=== PATIENT | female | born 1950 | race African-American/Black ===

== ENCOUNTER 2017-05-18 08:21 | Emergency (ER) | payer BC ==
[2017-05-18 08:31] VITALS: BMI 32.9
--- NOTE | 2017-05-18 08:39 | PDOC ---
*Physical Exam - Vital Signs Last Vital Signs Temp Pulse Resp BP Pulse Ox 98.4 F 77 18 181/108 97 05/18/17 08:27 05/18/17 08:27 05/18/17 08:27 05/18/17 08:27 05/18/17 08:27
--- NOTE | 2017-05-18 09:04 | PDOC ---
History of Present Illness - General Chief Complaint: Pain Stated Complaint: ABD PAIN Time Seen by Provider: 05/18/17 08:39 - History of Present Illness Initial Comments: 05/18/17 08:50 Ms. Traylor is a 66 year old female with a significant past medical history of surgery for an ectopic who presents to the emergency department with 24 hours of nausea and vomiting with 5/10 abdominal pain. She reports pain increases with moving and that she has been vomiting clear liquid almost hourly. The patient denies chest pain, shortness of breath, headache and dizziness. Denies fever, chills, diarrhea and constipation. Denies dysuria, frequency, urgency and hematuria. Allergies: n/a Past surgical history: ectopic removal Social history: PCP: 05/18/17 09:35 Past History - Past Medical History Allergies/Adverse Reactions: Allergies Allergy/AdvReac Type Severity Reaction Status Date / Time No Known Allergies Allergy Verified 05/18/17 08:27 Home Medications: Ambulatory Orders Metformin HCl [Metformin HCl ER] 500 mg PO DAILY 05/18/17 Ondansetron HCl [Zofran] 4 mg PO PRN #20 tablet 05/18/17 Oxycodone HCl/Acetaminophen [Percocet 5-325 mg Tablet] 1 tab PO Q4H #20 tablet MDD 6 05/18/17 Diabetes: Yes (niddm) - Psycho/Social/Smoking Cessation Hx Anxiety: No Suicidal Ideation: No Smoking History: Never smoked Have you smoked in the past 12 months: No Information on smoking cessation initiated: No Hx Alcohol Use: No Drug/Substance Use Hx: No Substance Use Type: None Review of Systems - Review of Systems Comments:: 05/18/17 08:50 GENERAL/CONSTITUTIONAL: No fever or chills. No weakness. HEAD, EYES, EARS, NOSE AND THROAT: No change in vision. No ear pain or discharge. No sore throat. CARDIOVASCULAR: No chest pain or shortness of breath RESPIRATORY: No cough, wheezing, or hemoptysis. GASTROINTESTINAL: +nausea and vomiting, several instances over the past 24 hours. Has not had a bowl movement since Friday. GENITOURINARY: No dysuria, frequency, or change in urination. MUSCULOSKELETAL: No joint or muscle swelling or pain. No neck or back pain. SKIN: No rash NEUROLOGIC: No headache, vertigo, loss of consciousness, or change in strength/ sensation. ENDOCRINE: No increased thirst. No abnormal weight change HEMATOLOGIC/LYMPHATIC: No anemia, easy bleeding, or history of blood clots. ALLERGIC/IMMUNOLOGIC: No hives or skin allergy. 05/18/17 09:38 *Physical Exam - Vital Signs Last Vital Signs Temp Pulse Resp BP Pulse Ox 98.4 F 77 18 181/108 97 05/18/17 08:27 05/18/17 08:27 05/18/17 08:27 05/18/17 08:27 05/18/17 08:27 05/18/17 14:57 - Physical Exam Comments: 05/18/17 08:50 GENERAL: Awake, alert, and fully oriented, in no acute distress HEAD: No signs of trauma, normocephalic, atraumatic EYES: PERRLA, EOMI, sclera anicteric, conjunctiva clear ENT: Auricles normal inspection, hearing grossly normal, nares patent, oropharynx clear without exudates. Moist mucosa NECK: Normal ROM, supple, no lymphadenopathy, JVD, or masses LUNGS: No distress, speaks full sentences, clear to auscultation bilaterally HEART: Regular rate and rhythm, normal S1 and S2, no murmurs, rubs or gallops, peripheral pulses normal and equal bilaterally. ABDOMEN: +Diffusely tender midline and right +hypoactive bowel sounds +guarding , +rebound. Soft, no masses EXTREMITIES: Normal inspection, Normal range of motion, no edema. No clubbing or cyanosis. NEUROLOGICAL: Cranial nerves II through XII grossly intact. Normal speech, normal gait, no focal sensorimotor deficits SKIN: Warm, Dry, normal turgor, no rashes or lesions noted. 05/18/17 09:39 05/18/17 14:57 Heart Score/ECG Review - ECG Impressions Comment:: 05/18/17 10:46 Normal sinus rhythm, normal access, normal intervals, normal rate, normal EKG. ED Treatment Course - LABORATORY CBC & Chemistry Diagram: 05/18/17 09:24 05/18/17 09:24 Medical Decision Making - Medical Decision Making 05/18/17 09:41 Ms. Traylor presented in acute pain. Could be seen to be moving around to try to get comfortable with limited success. Concern for Gall stones vs. Acute abdomen vs. SBO vs. appendicitis, formal US ordered to R/O. Formal US showed brannon and nephro lithiasis. Ordered CT to confirm. CT confirmed, referred to surgery and urology for f/u. D/C to home care on percocet / zofran. 05/18/17 14:56 *DC/Admit/Observation/Transfer Diagnosis at time of Disposition: Abdominal pain - Discharge Dispostion Disposition: HOME - Prescriptions Prescriptions: Oxycodone HCl/Acetaminophen [Percocet 5-325 mg Tablet] 1 tab PO Q4H #20 tablet MDD 6 Ondansetron HCl [Zofran] 4 mg PO PRN #20 tablet - Referrals Referrals: Lukas Salvador MD [Primary Care Provider] - Sandoval Obrien MD., MD [Staff Physician] - Boogie Chiu MD [Staff Physician] - - Patient Instructions Printed Discharge Instructions: Kidney Stones -- Adult, DI for Gallstones Additional Instructions: We are very sorry that you were not feeling well today. Please follow up with Urology and Surgery groups as listed above for gall bladder and kidney stones. Thank you for coming in today and we hope that you feel better soon. - Attestations Physician Attestion: 05/18/17 09:40 I, Dr. Ammon Redmond, attest that this document has been prepared under my direction and personally reviewed by me in its entirety. I further attest, that it accurately reflects all work, treatment, procedures and medical decision -making performed by me.
[2017-05-18] MEDS ORDERED: ONDANSETRON 4 MG TABLET PO ONE (09:06)
--- NOTE | 2017-05-18 09:09 | PDOC ---
Attending Attestation - Resident Resident Name: Ammon Redmond - ED Attending Attestation I have performed the following: I have examined & evaluated the patient, The case was reviewed & discussed with the resident, I agree w/resident's findings & plan, Exceptions are as noted <Sukhwinder Bob - Last Filed: 05/18/17 09:07> - HPI HPI: The patient is a 66 yo F with a past medical history of DM who presents with 24 hours of nausea, vomiting and R sided abdominal pain. Patient notes shes vomited 5 or 6 times. She rates her abdominal pain a 6/10. Patient also notes associated dizziness when she stands up. Patient states her last meal before she was sick was pasta with meat sauce. The patient states her last BM was 2 days ago. She denies a family Hx of gallstones. Allergies: NKDA Surgical Hx: ectopic - Physicial Exam PE: GENERAL: Awake, alert, and fully oriented, in mild distress HEAD: No signs of trauma EYES: PERRLA, EOMI, sclera anicteric, conjunctiva clear ENT: Auricles normal inspection, hearing grossly normal, nares patent, oropharynx clear without exudates. Moist mucosa NECK: Normal ROM, supple, no lymphadenopathy, JVD, or masses LUNGS: Breath sounds equal, clear to auscultation bilaterally. No wheezes, and no crackles HEART: Regular rate and rhythm, normal S1 and S2, no murmurs, rubs or gallops ABDOMEN: Obese. + Levine's sign. Soft, R sided tenderness to palpation, diminished bowel sounds. No guarding. no rebound. No masses. Nonreducible umbilical hernia that is tender to palpation. EXTREMITIES: Normal range of motion, no edema. No clubbing or cyanosis. No cords, erythema, or tenderness NEUROLOGICAL: Cranial nerves II through XII grossly intact. Normal speech, normal gait SKIN: Warm, Dry, normal turgor, no rashes or lesions noted. - Medical Decision Making The patient is a 66 yo F with a PMHx of DM who presents with nausea, vomiting and abdominal pain for 24 hours. 1.) Nausea, vomiting and abdominal pain NPO Zofran Morphine for pain control US r/o gallstones IVF Labs Lactic Acid r/o sepsis CT and US revealed that she had kidney stones and a gallstone. She will be treated as outpatient with surgical and neurological consultation. Pain and nausea will be treated with percocet and zofran. Documentation prepared by Anastasiya Bonds, acting as durable medical equipment technician for Sukhwinder Bob MD/. <Anastasiya Bonds - Last Filed: 05/18/17 17:41>
[2017-05-18] MEDS ORDERED: morphine CARPU-JECT 4 MG/1 ML DISP.SYRIN IVPUSH ONE ×2 (09:26→14:28)
[2017-05-18] MEDS ORDERED: ONDANSETRON 4 MG/2 ML VIAL ONE (09:28)
[2017-05-18] MEDS ORDERED: ONDANSETRON 4 MG/2 ML VIAL IVPUSH ONE (09:31)
[2017-05-18 09:37] LABS: BASOPHIL 0.8 % (0-2.0); MCHC 33.4 g/dl (32.0-36.0); MEAN CELL VOLUME 95.8 fl (80-96); MEAN PLT VOLUME 9.8 fl (7.5-11.1); NEUTROPHILS 80.9 % (42.8-82.8); PLATELET COUNT 174 K/MM3 (134-434); WHITE BLOOD COUNT 10.3 K/mm3 (4.0-10.0)
[2017-05-18] MEDS ORDERED: morphine CARPU-JECT 4 MG/1 ML DISP.SYRIN ONE ×2 (09:38→15:06)
[2017-05-18 09:40] LABS: URINE APPEARANCE CLEAR; URINE BILIRUBIN NEGATIVE (NEGATIVE); URINE COLOR YELLOW; URINE GLUCOSE (UA) 1+ (NEGATIVE); URINE KETONE TRACE (NEGATIVE); URINE LEUK ESTERASE NEGATIVE (NEGATIVE); URINE NITRITE NEGATIVE (NEGATIVE); URINE UROBILINOGEN NEGATIVE E.U./dl (0.2-1.0)
[2017-05-18 09:54] LABS: URINE BLOOD 2+ (NEGATIVE); URINE PROTEIN 1+ (NEGATIVE)
[2017-05-18 09:56] LABS: URINE BACTERIA RARE /hpf (NONE SEEN); URINE MUCUS FEW; URINE RBC 28 /hpf (0-3); URINE WBC 7 /hpf (3-5)
[2017-05-18] MEDS ORDERED: SODIUM CHLORIDE 0.9% 1000 ML INFUS.BAG IV ONE (10:01)
[2017-05-18 10:08] LABS: ALBUMIN 3.4 g/dl (3.4-5.0); ANION GAP 10 (8-16); BILIRUBIN,TOTAL 0.7 mg/dL (0.2-1.0); CALCIUM 9.4 mg/dL (8.5-10.1); CO2 28 mmol/L (21-32); CREATININE 1.4 mg/dL (0.55-1.02); GLUCOSE,RANDOM 185 mg/dL (74-106); SGOT/AST 42 U/L (15-37); SGPT/ALT 68 U/L (12-78); TOT PROT 7.8 g/dl (6.4-8.2)
[2017-05-18 10:09] LABS: ALK PHOS 77 U/L (45-117)
[2017-05-18] MEDS ORDERED: SODIUM CHLORIDE 1,000 ML IV STA (11:03)
[2017-05-18] MEDS ORDERED: CEFTRIAXONE 1 GM in DEXTROSE 5%-WATER - 50 ML IVPB ONE (11:16)
[2017-05-18] MEDS ORDERED: CEFTRIAXONE 50 ML ONE (11:47)
[2017-05-18 17:54] VITALS: BP 153/92; PULSE 83; TEMP 99
--- NOTE | 2017-05-19 10:41 | EKG ---
Test Reason : Blood Pressure : / mmHG Vent. Rate : 073 BPM Atrial Rate : 073 BPM P-R Int : 138 ms QRS Dur : 068 ms QT Int : 370 ms P-R-T Axes : 049 006 025 degrees QTc Int : 407 ms NORMAL SINUS RHYTHM MINIMAL VOLTAGE CRITERIA FOR LVH, MAY BE NORMAL VARIANT BORDERLINE ECG NO PREVIOUS ECGS AVAILABLE Confirmed by ANTONI HOU MD ([id number]) on 05/19/2017 10:41:40 AM Referred By: Confirmed By:ANTONI HOU MD
== END 2017-05-18 17:59 | disposition home or self-care (01) ==
LOC: JER 08:21
PROC: 3E0337Z Introduction of Electrolytic and Water Balance Substance into Peripheral Vein, Percutaneous Approach (ICD-10-PCS; principal; 2017-05-18)
PROC: 3E03329 Introduction of Other Anti-infective into Peripheral Vein, Percutaneous Approach (ICD-10-PCS; 2017-05-18)
PROC: 3E033NZ Introduction of Analgesics, Hypnotics, Sedatives into Peripheral Vein, Percutaneous Approach (ICD-10-PCS; 2017-05-18)
PROC: 3E033GC Introduction of Other Therapeutic Substance into Peripheral Vein, Percutaneous Approach (ICD-10-PCS; 2017-05-18)
DX: K80.20 Calculus of gallbladder without cholecystitis without obstruction (principal); N20.0 Calculus of kidney
CPT/HCPCS: 36415; 74176-TC; 76705-TC; 80053; 81003; 81015; 83605; 83690; 85025; 93005; 93010; 99282-25

== ENCOUNTER 2017-06-06 09:30 | Day surgery (SDC) | payer BC ==
[2017-06-05 14:00] VITALS: BMI 35.9
--- NOTE | 2017-06-06 14:14 | HP ---
History & Physical Update - History History: No Change - Physical Physical: No Change - Assessment Assessment: No Change - Plan Plan: No Change
[2017-06-06] MEDS ORDERED: DEXTROSE 5%-0.45% SALINE 1,000 ML IV SCH (14:15)
[2017-06-06] MEDS ORDERED: ceFAZolin SODIUM 1 GM VIAL IVPB ONE (14:15)
[2017-06-06] MEDS ORDERED: ACETAMINOPHEN 1000 MG/100 ML VIAL (NON FORMULARY) IVPB ONE (14:15)
[2017-06-06] MEDS ORDERED: IBUPROFEN 800 MG/8 ML IJ IVPB PRN (14:15)
[2017-06-06] MEDS ORDERED: PROPOFOL 20 ML ONE (14:19)
[2017-06-06] MEDS ORDERED: ceFAZolin SODIUM 1 GM VIAL ONE (14:24)
[2017-06-06] MEDS ORDERED: SODIUM CHLORIDE 0.9% P/F 10 ML VIAL IJ ONE (14:24)
[2017-06-06] MEDS ORDERED: DEXAMETHASONE SOD PHOSPHATE 4 MG/1 ML VIAL ONE (14:27)
[2017-06-06] MEDS ORDERED: KETOROLAC TROMETHAMINE 30 MG/1 ML VIAL ONE (14:43)
[2017-06-06] MEDS ORDERED: PROMETHAZINE HCL 25 MG/1 ML VIAL IVPUSH PRN (15:06)
[2017-06-06] MEDS ORDERED: ONDANSETRON 4 MG/2 ML VIAL IVPUSH PRN (15:06)
[2017-06-06] MEDS ORDERED: ACETAMINOPHEN INJECTION 100 ML IVPB ONE (15:12)
[2017-06-06] MEDS ORDERED: LACTATED RINGERS SOLUTION 1,000 ML IV SCH (15:15)
[2017-06-06 17:08] VITALS: TEMP 98.3
[2017-06-06 17:47] VITALS: BP 130/90; PULSE 72
--- NOTE | 2017-06-07 12:00 | OP ---
DATE OF OPERATION: 06/06/2017 PREOPERATIVE DIAGNOSIS: Right distal ureteral calculi x2. POSTOPERATIVE DIAGNOSIS: Right distal ureteral calculi x2. PROCEDURE: Right ureteroscopic laser lithotripsy and ureteral stent placement, cystoscopy. FINDINGS: Two large stones in the distal right ureter. DRAINS: A 6 x 24 double-J ureteral stent. SURGEON: Raghav Anderson MD ESTIMATED BLOOD LOSS: Minimal. ANESTHESIA: Megan Chong MD PREOPERATIVE INDICATIONS: The patient is a 66-year-old female who has 2 large stones in her distal right ureter. She has multiple small stones in the kidneys as well. She comes to the OR for laser lithotripsy. DESCRIPTION OF OPERATION: The patient is brought to the OR, placed on the table in the supine position, given general anesthesia and IV antibiotics, and placed in the modified lithotomy position. The groin was prepped and draped sterilely. Cystoscopy was performed. The right ureteral orifice was visualized. A wire was passed up into the right kidney under fluoroscopic guidance, and a 10-[place] dual-lumen catheter was used to dilate the UO. A semi-rigid ureteroscope was passed into the right ureter slowly and easily. The stones were visualized in the distal ureter. Using a holmium laser fiber, the stones were broken up into small pieces of dust. No other stones of size were seen along the course of the ureter. Over the remaining wire, a 6 x 14 double-J ureteral stent was placed with 1 loop in the bladder and 1 loop in the kidney. Bladder was emptied. The patient was woken up. Jazmín [id number]
== END 2017-06-06 17:30 | disposition home or self-care (01) ==
LOC: JASU-SURG 09:30
PROVIDERS: ATTEND Urology
PROC: 0TF68ZZ Fragmentation in Right Ureter, Via Natural or Artificial Opening Endoscopic (ICD-10-PCS; principal; 2017-06-06 14:00)
PROC: 0T768DZ Dilation of Right Ureter with Intraluminal Device, Via Natural or Artificial Opening Endoscopic (ICD-10-PCS; 2017-06-06 14:00)
DX: N20.1 Calculus of ureter (principal)
CPT/HCPCS: 76000-TC; 94760

== ENCOUNTER 2017-07-09 06:26 | Day surgery (SDC) | payer BC ==
--- NOTE | 2017-07-04 11:57 | HP ---
PREPROCEDURE NOTE/PREADMISSION HISTORY AND PHYSICAL DATE OF ADMISSION: 07/09/2017 HISTORY: This is a 66-year-old woman admitted to the hospital for laparoscopic removal of her gallbladder. For the past month, the patient has been experiencing intermittent bouts of right upper quadrant pain radiating to her right flank and around to her right back. An ultrasound of the abdomen had demonstrated evidence of cholelithiasis. There was incidental note of right nephrolithiasis and mild right hydronephrosis. Apparently, the patient has had her kidney stones addressed. She presents at this time for management of her biliary tree. On close questioning, she has no specific fatty food intolerance by history as she refrains from fatty foods just based on advice given to her by her general medical practitioners considering her underlying history of diabetes and hypertension. There has been no unintentional weight loss. There is no history of jaundice. PAST MEDICAL HISTORY: Significant for hypertension and diabetes. No known history of heart disease, respiratory, renal, or hepatic insufficiency. PAST SURGICAL HISTORY: Essentially nil other than right ureteroscopic laser lithotripsy and ureteral stent placement. ALLERGIES: None known. REGULAR MEDICATIONS: Metformin and antihypertensives, the name of which the patient cannot recall. SOCIAL HISTORY: Negative tobacco. Social alcohol/minimal. FAMILY HISTORY: Essentially nil. REVIEW OF SYSTEMS: Nil. PHYSICAL EXAMINATION: Abdomen: Large, soft, nontender. Umbilical and upper midline, chronically incarcerated hernias are noted. Abdomen soft and nontender otherwise. Ultrasound evaluation of the abdomen demonstrating multiple calculi within the lumen of the gallbladder. No ductal dilatation. IMPRESSION: Symptomatic cholelithiasis/chronic cholecystitis. PLAN: Laparoscopic cholecystectomy/possible open gallbladder removal. Indications, alternatives, possible complications reviewed. Consent obtained. Patient will be seen preoperatively by Dr. Salvador. Please refer to his notes for those medical details. MARIO BURTON M.D. [id number] cc: Lukas Salvador MD
[2017-07-08 18:23] VITALS: BMI 37.8
[2017-07-09] MEDS ORDERED: ERTAPENEM SODIUM 1 GM VIAL ONE (06:59)
[2017-07-09] MEDS ORDERED: LIDOCAINE HCL/PF 2% SDV 5ML VIAL ONE (07:47)
[2017-07-09] MEDS ORDERED: PROPOFOL 20 ML ONE ×2 (07:47→08:12)
[2017-07-09] MEDS ORDERED: ROCURONIUM BROMIDE 50 MG/5 ML VIAL ONE (07:48)
[2017-07-09] MEDS ORDERED: MIDAZOLAM HCL 2 MG/2 ML SINGLE DOSE VIAL ONE (07:49)
[2017-07-09] MEDS ORDERED: SUCCINYLCHOLINE CHLORIDE 200 MG/10 ML VIAL ONE (07:50)
[2017-07-09] MEDS ORDERED: ERTAPENEM SODIUM 1 GM/50 ML PRE-DOCKED IVPB ONE (08:20)
[2017-07-09] MEDS ORDERED: DEXAMETHASONE SOD PHOSPHATE 4 MG/1 ML VIAL ONE (08:52)
[2017-07-09] MEDS ORDERED: ONDANSETRON 4 MG/2 ML VIAL ONE (08:52)
[2017-07-09] MEDS ORDERED: GLYCOPYRROLATE 0.2 MG/1 ML VIAL ONE (08:57)
[2017-07-09] MEDS ORDERED: NEOSTIGMINE METHYLSULFATE 0.5 MG/ML - 10 ML MDV ONE (08:57)
[2017-07-09] MEDS: ALBUTEROL SO4 0.083% IH SOL 2.5 MG/3 ML VIAL.NEB. NEB ONE ×2 (09:35→10:00)
[2017-07-09] MEDS ORDERED: morphine CARPU-JECT 2 MG/1 ML DISP.SYRIN IVPB PRN (09:50)
[2017-07-09] MEDS ORDERED: PANTOPRAZOLE SODIUM 40 MG in SODIUM CHLORIDE 100 ML IVPB SCH (10:00)
[2017-07-09] MEDS ORDERED: SODIUM CHLORIDE 1,000 ML IV SCH (10:00)
[2017-07-09] MEDS ORDERED: ACETAMINOPHEN INJECTION 100 ML IVPB ONE (10:02)
[2017-07-09] MEDS ORDERED: ACETAMINOPHEN 1000 MG/100 ML VIAL (NON FORMULARY) IVPB ONE (10:04)
[2017-07-09] MEDS ORDERED: ONDANSETRON 4 MG/2 ML VIAL IVPUSH PRN (10:12)
[2017-07-09] MEDS ORDERED: LACTATED RINGERS SOLUTION 1,000 ML IV SCH (10:15)
[2017-07-09] MEDS: SERTRALINE HCL 25 MG TABLET (FP) PO SCH (12:00)
[2017-07-09] MEDS: INSULIN SLIDING SCALE (NOVOLOG) 1 VIAL SQ SCH ×3 (12:00→21:34)
[2017-07-09] MEDS: LISINOPRIL 5 MG TABLET (FP) PO SCH (12:00)
[2017-07-09] MEDS: ENOXAPARIN NA (PORCINE) 40 MG/0.4 ML DISP.SYRIN SQ SCH (15:55)
--- NOTE | 2017-07-09 15:57 | OP ---
DATE OF OPERATION: 07/09/2017 PREOPERATIVE DIAGNOSIS: Chronic cholecystitis/cholelithiasis. POSTOPERATIVE DIAGNOSIS: Chronic cholecystitis/cholelithiasis. PROCEDURE: Laparoscopic cholecystectomy. OPERATING SURGEON: Mazin Patel MD HEEL CUTTER: Kale Deras DO ANESTHESIA: Letitia Iyer MD (general) HISTORY: A 66-year-old woman who presents for laparoscopic removal of her gallbladder as management of symptomatic cholelithiasis. Patient also with 2 large anterior abdominal wall hernias, one involving the supraumbilical midline, the other involving the entire central ring and extending into the infraumbilical midline. These hernias are not to be addressed at the time of this procedure, but will require subsequent repair. Indications, alternatives, possible complications reviewed. Consent obtained. PROCEDURE: With the patient in the supine position, after general anesthesia, the abdomen was prepped and draped in the usual sterile fashion using chlorhexidine. A small incision was made in the infraumbilical midline, below a hernia. The subcutaneous tissues were . A Veress needle was placed through the small defect into the abdominal cavity. The abdominal cavity was insufflated to an adequate pressure and volume using CO2 gas. The Veress needle was removed. 11mm trocar port placed through the infraumbilical wound. The camera once passed through this port and the intraabdominal cavity visualized. Maneuvering around the midline hernias, which appeared to be large fat- containing hernias, the upper abdomen was ultimately visualized without difficulty. Under direct vision, two 5 mm right anterolateral ports were placed. Clamps were passed to maintain traction on the gallbladder and aid in the dissection. An 11 mm port was placed in the epigastrium through which the operating instruments were passed. Exploration of the upper abdomen revealed several adhesions about the gallbladder. These were taken down under direct vision exposing the entire gallbladder and hepatoduodenal ligament. The peritoneum and hepatoduodenal ligament was incised. The cystic duct was identified. The cystic duct-bile duct junction was noted. The cystic duct was clipped proximally, distally and divided. The adjacent cystic artery was identified, clipped and divided as well. The gallbladder was then removed from the gallbladder bed, lysing its attachment to the liver using the electrocautery. There was posterior loss of plane consistent with chronicity. The liver itself had a significant nodular texture to it and thus raised the suspicion for fatty liver. The gallbladder was ultimately removed from the liver bed and placed in a retrieval bag. The oozing from the liver bed was controlled with the electrocautery and ultimately with a small amount of Floseal for a larger sinusoid. The right upper quadrant was irrigated. The irrigant retrieved. All ports were removed under direct vision, no bleeding identified. Ultimately, the gallbladder was delivered through the infraumbilical port site without difficulty. The fascia at the infraumbilical wound was closed using interrupted No. 1 Vicryl sutures. All skin wounds were closed using subcuticular 4-0 Biosyn sutures. Needle and instrument counts correct. ESTIMATED BLOOD LOSS: Minimal. SPECIMEN: Gallbladder. DRAINS: None. Patient tolerated the procedure. The procedure was terminated. Jazmín [id number] cc: Lukas Salvador MD MTDD
[2017-07-09] MEDS: oxyCODONE HCL 5 MG TABLET PO PRN (18:30)
[2017-07-09] MEDS ORDERED: INSULIN (NOVOLOG) ASPART 100 UNITS/ML 10ML VIAL ONE (20:56)
[2017-07-10] MEDS: INSULIN SLIDING SCALE (NOVOLOG) 1 VIAL SQ SCH ×2 (06:08→10:33)
[2017-07-10] MEDS: oxyCODONE HCL 5 MG TABLET PO PRN (06:53)
[2017-07-10] MEDS: ENOXAPARIN NA (PORCINE) 40 MG/0.4 ML DISP.SYRIN SQ SCH (10:32)
[2017-07-10] MEDS: LISINOPRIL 5 MG TABLET (FP) PO SCH (10:33)
[2017-07-10] MEDS: SERTRALINE HCL 25 MG TABLET (FP) PO SCH (10:33)
--- NOTE | 2017-07-10 12:21 | PATH ---
Surgical Pathology Report Patient Name: MURPHY BENITEZ Med. Rec. #: [id number] /Age/Gender: 1950 (Age: 66) / F Account: [id number] Location: [address] [place] [address]/[facility] Taken: 07/09/2017 Received: 07/09/2017 Reported: 07/10/2017 Physicians: Mazin Patel M.D. Specimen(s) Received GALLBLADDER Clinical History Calculus of gallbladder Final Diagnosis GALLBLADDER, CHOLECYSTECTOMY: CHRONIC CHOLECYSTITIS, CHOLESTEROLOSIS, AND CHOLELITHIASIS. Electronically Signed Jace Fregoso M.D. Gross Description Received in formalin, labeled "gallbladder," is a 7.6 x 2.8 x 2.5 cm. gallbladder with a 0.2 cm. in length portion of cystic duct attached. The outer surface is shafer-pink and varies from smooth to shaggy. The lumen contains green, tenacious bile as well as multiple yellow, irregular to fragmented choleliths ranging from 0.1-2.0 cm in greatest dimension. The mucosa is shafer-red with gold cholesterol stippling. The wall of the gallbladder averages 0.1 cm. in thickness. Loading Checker sections are submitted in one cassette. 07/09/201707/09/2017
--- NOTE | 2017-07-10 13:28 | PN ---
Progress Note (short form) - Note Progress Note: Anesthesiology Post-op POD#1 s/p laparoscopic cholecystectomy under GA. Pt. does have some pain but it is relieved somewhat with medication. I encouraged incentive spirometry. Otherwise, VSS, no apparent anesthesia-related issues.
[2017-07-10 14:36] VITALS: BP 124/52; PULSE 71; TEMP 98.5
== END 2017-07-10 15:50 | disposition home or self-care (01) ==
LOC: JASUSAT 06:26 → J6S 13:05 → JASUSAT 07-10 15:50
PROVIDERS: ATTEND Surgery
PROC: 0FT44ZZ Resection of Gallbladder, Percutaneous Endoscopic Approach (ICD-10-PCS; principal; 2017-07-09 08:00)
DX: K80.10 Calculus of gallbladder with chronic cholecystitis without obstruction (principal)
CPT/HCPCS: 88304-TC; 94010; 94760

== ENCOUNTER 2018-02-18 11:46 | Inpatient (IN) | payer BC, OTHER ==
--- NOTE | 2018-02-16 13:45 | HP ---
HISTORY: This is a 67-year-old woman admitted to the hospital for open bilateral component separation repair of a complex chronically incarcerated ventral hernia. Patient had recently presented with biliary disease back in June of this past year. At that time, she underwent a laparoscopic removal of her gallbladder. Her hernias were noted at that time, but definitive management deferred considering the potential for mesh contamination at the time of cholecystectomy. Now, that her biliary issue has been resolved, she presents now for definitive management of her anterior abdominal wall. According to the patient, she has had abdominal wall hernias for quite some time. PAST MEDICAL HISTORY: Is significant for hypertension and diabetes. No known history of heart disease, respiratory, renal, or hepatic insufficiency. PAST SURGICAL HISTORY: Significant for recent laparoscopic cholecystectomy in 2017 as well as previous ureteroscopic laser lithotripsy and ureteral stent placement. ALLERGIES: None known. REGULAR MEDICATIONS: Metformin, antihypertensives. SOCIAL HISTORY: Negative for tobacco. Social alcohol/minimal. FAMILY HISTORY: Nil. REVIEW OF SYSTEMS: Nil. PHYSICAL EXAMINATION: Abdomen: Large, soft, nontender. Obvious hernias involving of the upper midline where the hernia is chronically incarcerated. There is also a large hernia by the involving the center ring of the abdomen extending into the lower midline, which is also chronically incarcerated. The abdomen itself is soft and nontender otherwise. IMPRESSION: Longstanding complex chronically incarcerated ventral hernia. PLAN: Open bilateral component separation, reduction, and repair of chronically incarcerated complex ventral hernia with mesh. Indications, alternatives, possible complications were reviewed. Issues that relate to the mesh including, but not limited to, infection, migration have been reviewed with the patient, as well. Consent obtained. Patient is to be seen preoperatively by Dr. Salvador of the medical service. Please refer to his notes for those medical details. MARIO BURTON M.D. [id number] cc: Lukas Salvador MD
[2018-02-16 15:57] VITALS: BMI 37.2
[2018-02-18] MEDS ORDERED: ceFAZolin SODIUM 1 GM VIAL ONE (12:53)
[2018-02-18] MEDS ORDERED: DEXAMETHASONE SOD PHOSPHATE/PF 10 MG/ML SDV ONE (13:10)
[2018-02-18] MEDS ORDERED: PROPOFOL 20 ML ONE (13:10)
[2018-02-18] MEDS ORDERED: fentaNYL CITRATE 250 MCG/5 ML VIAL ONE (13:10)
[2018-02-18] MEDS ORDERED: ROPIVACAINE HCL 0.5% 30ML VIAL ONE (13:11)
[2018-02-18] MEDS ORDERED: MIDAZOLAM HCL 2 MG/2 ML SINGLE DOSE VIAL ONE ×2 (13:11)
[2018-02-18] MEDS ORDERED: SUCCINYLCHOLINE CHLORIDE 200 MG/10 ML VIAL ONE (13:47)
[2018-02-18] MEDS ORDERED: ceFAZolin SODIUM 1 GM VIAL IVPB ONE (14:15)
[2018-02-18] MEDS ORDERED: ROCURONIUM BROMIDE 50 MG/5 ML VIAL ONE (14:26)
[2018-02-18] MEDS ORDERED: ePHEDrine SULFATE 50 MG/1 ML AMPULE ONE (14:27)
[2018-02-18] MEDS ORDERED: DEXAMETHASONE SOD PHOSPHATE 4 MG/1 ML VIAL ONE (14:30)
[2018-02-18] MEDS ORDERED: NEOSTIGMINE METHYLSULFATE 0.5 MG/ML - 10 ML MDV ONE (15:50)
[2018-02-18] MEDS ORDERED: GLYCOPYRROLATE 0.2 MG/1 ML VIAL ONE ×2 (15:50→15:56)
[2018-02-18] MEDS ORDERED: oxyCODONE HCL 5 MG TABLET PO PRN (15:59)
[2018-02-18] MEDS ORDERED: ACETAMINOPHEN 325 MG TABLET (FP) PO PRN (15:59)
[2018-02-18] MEDS ORDERED: ONDANSETRON 4 MG/2 ML VIAL IVPUSH PRN ×2 (15:59→18:25)
[2018-02-18] MEDS ORDERED: D5-1/2NS+20 MEQ KCL - 20 MEQ/1,000 ML INFUS.BAG IV SCH (16:00)
[2018-02-18] MEDS ORDERED: PROMETHAZINE HCL 25 MG/1 ML VIAL IVPB PRN (18:25)
[2018-02-18] MEDS ORDERED: LACTATED RINGERS SOLUTION 1,000 ML IV SCH (18:30)
[2018-02-18] MEDS: morphine SULFATE 4 MG/ML VIAL IVPB PRN (20:29)
[2018-02-19] MEDS ORDERED: HYDROCHLOROTHIAZIDE 25 MG TABLET (FP) PO SCH (10:00)
[2018-02-19] MEDS ORDERED: ENOXAPARIN NA (PORCINE) 40 MG/0.4 ML DISP.SYRIN SQ SCH (10:00)
[2018-02-19] MEDS ORDERED: SERTRALINE HCL 25 MG TABLET (FP) PO SCH (10:00)
[2018-02-19] MEDS ORDERED: LISINOPRIL 10 MG TABLET (FP) PO SCH (10:00)
[2018-02-19] MEDS ORDERED: PANTOPRAZOLE SODIUM 40 MG VIAL IVPUSH SCH (10:00)
[2018-02-19] MEDS ORDERED: PT OWN MED DRAWER 7, Y5N ONE ×2 (10:07→10:45)
[2018-02-19] MEDS: morphine SULFATE 4 MG/ML VIAL IVPB PRN (10:13)
--- NOTE | 2018-02-19 10:22 | HP ---
UPDATED HISTORY AND PHYSICAL DATE OF ADMISSION: 02/18/2018 Since the patient's previous dictated history and physical of January 13, 2018, there has been no change in her history and physical. Patient presents for bilateral component separation and repair of complex, chronically incarcerated, ventral hernia with mesh. Patient was noted to have a very large, complex hernia when she presented in June with biliary disease and required cholecystectomy. She underwent cholecystectomy, and the hernia surgery was deferred at that time. She has recovered and now presents for repair of her abdominal wall. PAST MEDICAL HISTORY: Significant for diabetes and hypertension. No known history of heart disease, respiratory, renal, or hepatic insufficiency. PAST SURGICAL HISTORY: Significant for laparoscopic cholecystectomy as well as previous ureteroscopic laser lithotripsy and ureteral stents. ALLERGIES: None known. REGULAR MEDICATIONS: Metformin, antihypertensive. SOCIAL HISTORY: Negative tobacco. Social alcohol/occasional. FAMILY HISTORY: Nil. REVIEW OF SYSTEMS: Nil. PHYSICAL EXAMINATION: Abdomen: Large, soft, nontender. Obvious hernia involving the upper midline which is chronically incarcerated. There is also a large hernia involving the central ring of the abdomen as well as herniation of the lower midline which is also chronically incarcerated. IMPRESSION: Longstanding, complex, chronically incarcerated, ventral/incisional abdominal wall hernia. PLAN: Open bilateral component-separation reduction and repair of chronically incarcerated, complex ventral hernia with mesh. Indications, alternatives, possible complications reviewed. Consent obtained. Please refer to preoperative note of Dr. Salvador for medical details. MARIO BURTON M.D. [id number]
--- NOTE | 2018-02-19 11:25 | OP ---
DATE OF OPERATION: 02/18/2018 PREOPERATIVE DIAGNOSIS: Complex, chronically incarcerated, ventral/incisional abdominal wall hernia. POSTOPERATIVE DIAGNOSIS: Complex, chronically incarcerated, ventral/incisional abdominal wall hernia. PROCEDURE: Bilateral component-separation, repair of complex, chronically incarcerated, ventral/incisional abdominal wall hernia with mesh/partial omentectomy. OPERATING SURGEON: Mario Patel MD COMMERCIAL COLLECTOR: Mendoza Blackman MD ANESTHESIA: Dale De Leon MD (general) HISTORY: A 67-year-old woman who presents for repair of a rather longstanding, complex, chronically incarcerated, abdominal wall hernia. Indications, alternatives, and possible complications reviewed. Consent obtained. DESCRIPTION OF PROCEDURE: With the patient in the supine position, and after general anesthesia, the abdomen was prepped and draped in usual sterile fashion using chlorhexidine. A generous midline incision was made directly over the complex hernia and deepened into the subcutaneous space. The hernia sac was easily encountered. It was cleaned circumferentially and followed to the level of the fascial ring. The sac was opened, found to contain a portion of omentum which was adhesed to the sac itself. Lysis of adhesions ensued as well as partial omentectomy, and a portion of the omentum and sac were delivered. First directing our attention to the patient's right side, the right posterior rectus sheath was from the overlying rectus muscle fibers using sharp dissection. The dissection in this plane was carried out inferiorly, laterally, and superiorly, ultimately arriving at the junction of the rectus musculature with the oblique and transversus muscles. Separation of the oblique musculature from the underlying transverse muscle ensued using sharp dissection, creating a space which was contiguous with the retrorectus space. Again, the dissection was carried out in the inferior, lateral, and superior directions. Now directing our attention to the patient's left side, the posterior sheath was from the overlying rectus muscle fibers using sharp dissection once again. Again, the retrorectus space was created encompassing the inferior, lateral, and superior regions, ultimately arriving again at the junction of the rectus musculature with the oblique and transversus muscles. Separation of the overlying external oblique musculature from the underlying transversus ensued under direct vision. That space was mobilized again inferiorly, laterally, and superiorly. That space communicated with the left retrorectus space. The posterior midline was then recreated, approximating the posterior sheath using a continuous 2-0 V-Loc suture. A Composite mesh was then fashioned at the table using a piece of 30 x 30 Covidien Versatex mesh which was sutured to a piece of LIAM Bio using circumferential 3-0 Vicryl sutures. The mesh was placed in the retrorectus space with the LIAM Bio side down and the soft permanent side up. The mesh was laid out in the space that had been created by the dissection. The mesh was fashioned circumferentially to the overlying musculature using counterpalpation and AbsorbaTacker. After the mesh was fixed appropriately, the wound was irrigated and irrigant retrieved. Adequate hemostasis ensured. The fascia over the anterior fascia was then closed using both continuous and interrupted 0 PDS sutures, leaving the Composite mesh entirely in the retrorectus space. The subcutaneous tissues were then irrigated and adequate hemostasis ensured. A Figueroa-Schafer drain was left in the subcutaneous space and exited through a separate stab wound at the level of the skin of the right lower abdominal wall where it was tacked in place using 2-0 silk suture. The skin edges were approximated using metallic clips. Dermabond was used to seal the wound. At the completion of the procedure, needle, sponge, and instrument count was correct. ESTIMATED BLOOD LOSS: 100 mL SPECIMEN: Portion of omentum. IMPLANT: Composite mesh (Versatex/LIAM Bio). Patient tolerated the procedure, and the procedure was terminated. MARIO PATEL M.D. [id number] MTDD
--- NOTE | 2018-02-19 14:13 | DS ---
DATE OF ADMISSION: 02/18/2018 DATE OF DISCHARGE: 02/19/2018 ADMITTING DIAGNOSES: Complex incisional hernia with pre-existing hypertension, diabetes, and depression. DISCHARGE DIAGNOSES: Complex incisional hernia with pre-existing hypertension, diabetes, and depression. BRIEF HISTORY: A 67-year-old female who presented to [facility] for surgical management of a complex incisional hernia. She underwent repair of the hernia with mesh utilizing component separation and myofascial release on February 18, 2018. Please reference Dr. Patel's operative note. She is being anticipated discharge today, February 19, 2018. She is tolerating her diet. She is ambulating and voiding, and her pain is controlled with oral analgesics. She will go home with her usual home medications of hydrochlorothiazide, lisinopril, metformin, and Zoloft. She will have an additional prescription for Percocet which she will take as needed for pain. She is being evaluated by the physical therapy service prior to discharge to ensure that she can safely navigate 12 steps which are in her house. She will follow with Dr. Patel next week to be evaluated for drain removal. She is okay to walk, expected to be okay to climb stairs. She will not shower. She will not lift anything over 20 pounds, and she can be expected to be out from work for 2-4 weeks. At the time of her discharge, her incision is clean with no bleeding, no signs of infection. DO PARAMJIT JARQUIN/[id number]
[2018-02-19 17:09] VITALS: BP 113/67; PULSE 79; TEMP 98.4
[2018-02-19] MEDS: IBUPROFEN 800 MG/8 ML IJ IVPB SCH (17:47)
[2018-02-20] MEDS ORDERED: PANTOPRAZOLE 40 MG TABLET (FP) PO SCH (10:00)
--- NOTE | 2018-02-23 08:53 | PATH ---
Surgical Pathology Report Patient Name: MURPHY BENITEZ Med. Rec. #: [id number] /Age/Gender: 1950 (Age: 67) / F Account: [id number] Location: [facility] MED/SURG Taken: 02/18/2018 Received: 02/19/2018 Reported: 02/23/2018 Physicians: Mazin Paetl M.D. Specimen(s) Received OMENTUM PORTION Clinical History Ventral hernia Final Diagnosis SOFT TISSUE, ABDOMINAL WALL, EXCISION: FIBROMEMBRANOUS TISSUE CONSISTENT WITH HERNIA SAC, AND BENIGN ADIPOSE TISSUE CONSISTENT WITH PORTION OF OMENTUM. Electronically Signed Jace Fregoso M.D. Gross Description Received in formalin labeled "portion of omentum" multiple fragments of fibromembranous tissue consistent with hernia sac and yellow lobulated omental adipose soft tissue measuring 7 x 7 x 2.5 cm. [employer] sections are submitted in one cassette. FELIPE/02/19/2018 junior/02/19/2018
== END 2018-02-19 18:56 | disposition home health service (06) | DRG 355 ==
LOC: JASUSAT 11:46 → J8W 20:15 → JASUSAT 20:16 → J8W 20:16
PROVIDERS: ADMIT Surgery; ATTEND Surgery
PROC: 0WUF0JZ Supplement Abdominal Wall with Synthetic Substitute, Open Approach (ICD-10-PCS; principal; 2018-02-18 13:30)
PROC: 0DBU0ZZ Excision of Omentum, Open Approach (ICD-10-PCS; 2018-02-18 13:30)
DX: K43.0 Incisional hernia with obstruction, without gangrene (principal); K66.0 Peritoneal adhesions (postprocedural) (postinfection); I10 Essential (primary) hypertension; E11.9 Type 2 diabetes mellitus without complications
CPT/HCPCS: 82962; 88302-TC; 97116-GP; 97162-GP

== ENCOUNTER → 2021-11-28 | Day surgery (SDC) | payer BC, OTHER | END | disposition home or self-care (01) | LOC: JRADUS-SUR 13:03 | PROVIDERS: ATTEND Internal Medicine Geriatric Medicine | PROC: 0H9U3ZX Drainage of Left Breast, Percutaneous Approach, Diagnostic (ICD-10-PCS; principal; 2021-11-28) | DX: C50.912 Malignant neoplasm of unspecified site of left female breast (principal) | CPT/HCPCS: 19083; 77065-TC; 87899; A4648 ==

== ENCOUNTER → 2022-07-03 | Day surgery (SDC) | payer OTHER, BC ==
[2022-06-27 14:26] VITALS: BMI 36.6
[~2022-07-03] MED LIST: CYCLOPENTOLATE 2% OPHTH SOLN 2 ML BOTTLE OD ONE; CYCLOPENTOLATE 2% OPHTH SOLN 2 ML BOTTLE OD SCH; MIDAZOLAM HCL 2 MG/2 ML SINGLE DOSE VIAL ONE; OFLOXACIN 0.3% OPHTHALMIC SOLUTION 5 ML BOTTLE OD ONE; OFLOXACIN 0.3% OPHTHALMIC SOLUTION 5 ML BOTTLE OD SCH; PHENYLEPHRINE 2.5% OPHTH SOLN 15 ML BOTTLE OD ONE; PHENYLEPHRINE 2.5% OPHTH SOLN 15 ML BOTTLE OD SCH; TROPICAMIDE 1% OPHTH SOLN 15 ML BOTTLE OD ONE; TROPICAMIDE 1% OPHTH SOLN 15 ML BOTTLE OD SCH
[2022-07-03 11:28] VITALS: RESP 12; TEMP 97.7
[2022-07-03 11:44] VITALS: BP 154/78; PULSE 64
== END | disposition home or self-care (01) ==
LOC: FASU 09:26
PROVIDERS: ATTEND Ophthalmology
PROC: 08RJ3JZ Replacement of Right Lens with Synthetic Substitute, Percutaneous Approach (ICD-10-PCS; principal; 2022-07-03 10:43)
DX: H26.8 Other specified cataract (principal)
CPT/HCPCS: 66984; V2632; 82962

== ENCOUNTER 2022-08-07 08:39 | Day surgery (SDC) | payer OTHER, BC ==
[2022-08-02 15:02] VITALS: BMI 36.6
[2022-08-07] MEDS: CIPROFLOXACIN 0.3% EYE DROPS 5 ML BOTTLE ONE ×3 (09:00→09:11)
[2022-08-07] MEDS: PHENYLEPHRINE 2.5% OPHTH SOLN 15 ML BOTTLE ONE ×3 (09:00→09:10)
[2022-08-07] MEDS: TROPICAMIDE 1% OPHTH SOLN 15 ML BOTTLE ONE ×3 (09:00→09:10)
[2022-08-07] MEDS: CYCLOPENTOLATE 2% OPHTH SOLN 2 ML BOTTLE ONE ×3 (09:00→09:10)
[2022-08-07] MEDS ORDERED: MIDAZOLAM HCL 2 MG/2 ML SINGLE DOSE VIAL ONE (10:19)
[2022-08-07] MEDS ORDERED: TETRACAINE 0.5% OPHTH SOLN 2 ML BOTTLE ONE (10:21)
[2022-08-07] MEDS ORDERED: LIDOCAINE 1% P/F 10 MG/ML VIAL ONE (10:21)
[2022-08-07] MEDS ORDERED: BSS (NA/CA/MG/K) BALANCED SALT SOLUTION OPHTH SOLN 15 ML BOTTLE ONE (10:21)
[2022-08-07] MEDS ORDERED: NEO/POLYMYX B SULF/DEXAMETH OPHTHALMIC 5ML BOTTLE ONE (10:21)
[2022-08-07] MEDS ORDERED: CARBACHOL 0.01% INTRA-OCULAR 1.5 ML VIAL ONE (10:21)
[2022-08-07 11:07] VITALS: PULSE 65; RESP 20; TEMP 98.1
[2022-08-07 11:29] VITALS: BP 144/88
== END 2022-08-07 11:30 | disposition home or self-care (01) ==
LOC: FASU 08:39
PROVIDERS: ATTEND Ophthalmology
PROC: 08RK3JZ Replacement of Left Lens with Synthetic Substitute, Percutaneous Approach (ICD-10-PCS; principal; 2022-08-07 10:28)
DX: H26.8 Other specified cataract (principal)
CPT/HCPCS: 66984; V2632; 82962

== ENCOUNTER 2022-12-04 07:03 | Inpatient (IN) | payer OTHER, BC ==
[2022-11-26 16:27] VITALS: BMI 36.2
[2022-12-04] MEDS ORDERED: CEFAZOLIN 2 GM in DEXTROSE 5%-WATER - 50 ML IVPB ONE (08:00)
[2022-12-04] MEDS ORDERED: TRANEXAMIC ACID 1000 MG/10 ML VIAL IVPUSH ONE ×2 (08:00→18:00)
[2022-12-04] MEDS ORDERED: BUPIVACAINE HCL/PF 0.5% (5MG/ML) 10 ML VIAL ONE (09:57)
[2022-12-04] MEDS ORDERED: BUPIVACAINE LIPOSOME/PF (EXPAREL) 266 MG/20 ML VIAL ONE (09:57)
[2022-12-04] MEDS ORDERED: SODIUM CHLORIDE 0.9% P/F 10 ML VIAL IJ ONE (09:57)
[2022-12-04] MEDS ORDERED: MIDAZOLAM HCL 2 MG/2 ML SINGLE DOSE VIAL ONE (09:57)
[2022-12-04] MEDS ORDERED: MAG HYDROX/AL HYDROX/SIMETH 30 ML UNIT-DOSE CUP PO PRN (13:28)
[2022-12-04] MEDS ORDERED: MAGNESIUM HYDROX 2400MG/30ML ORAL SUSPENSION 30 ML CUP PO PRN (13:28)
[2022-12-04] MEDS ORDERED: oxyCODONE HCL 5 MG TABLET PO PRN ×4 (13:28→13:32)
[2022-12-04] MEDS ORDERED: ONDANSETRON 4 MG/2 ML VIAL IVPUSH PRN ×2 (13:28→13:32)
[2022-12-04] MEDS ORDERED: LACTATED RINGERS SOLUTION 1,000 ML IV SCH (13:30)
[2022-12-04] MEDS ORDERED: PROMETHAZINE HCL 25 MG/1 ML VIAL IVPUSH PRN (13:32)
[2022-12-04] MEDS ORDERED: ERGOCALCIFEROL (VIT D2) 50,000 UNIT (1.25 MG) CAPSULE PO SCH (15:00)
[2022-12-04] MEDS: INSULIN SLIDING SCALE (NOVOLOG) 1 VIAL SQ SCH ×2 (16:40→21:16)
[2022-12-04] MEDS: CEFAZOLIN SODIUM 2 GM in DEXTROSE 5%-WATER 100 ML IVPB SCH (19:50)
[2022-12-04] MEDS: ACETAMINOPHEN 1000 MG/100 ML BAG IVPB SCH (20:31)
[2022-12-04] MEDS: ASPIRIN 81 MG CHEWABLE TABLETS PO SCH (21:16)
[2022-12-04] MEDS: SENNOSIDES/DOCUSATE COMBO (SENNA PLUS) TABLET (UD) PO SCH (21:16)
[2022-12-04] MEDS: FAMOTIDINE 20 MG TABLET PO SCH (21:16)
[2022-12-05] MEDS: CEFAZOLIN SODIUM 2 GM in DEXTROSE 5%-WATER 100 ML IVPB SCH (02:16)
[2022-12-05] MEDS: ACETAMINOPHEN 1000 MG/100 ML BAG IVPB SCH ×4 (03:11→20:20)
[2022-12-05] MEDS: INSULIN SLIDING SCALE (NOVOLOG) 1 VIAL SQ SCH ×4 (06:48→21:06)
[2022-12-05] MEDS ORDERED: TRANEXAMIC ACID 1000 MG/10 ML VIAL IVPUSH ONE (07:00)
[2022-12-05] MEDS: ASPIRIN 81 MG CHEWABLE TABLETS PO SCH ×2 (09:23→21:06)
[2022-12-05] MEDS: MULTIVITAMINS (DAILY MVI) TABLET (FP) PO SCH (09:23)
[2022-12-05] MEDS: SENNOSIDES/DOCUSATE COMBO (SENNA PLUS) TABLET (UD) PO SCH ×2 (09:24→21:06)
[2022-12-05] MEDS: FAMOTIDINE 20 MG TABLET PO SCH ×2 (09:24→21:06)
[2022-12-05] MEDS: ASCORBIC ACID 500 MG TABLET (FP) PO SCH (09:24)
[2022-12-05] MEDS: SERTRALINE HCL 50 MG TABLET (FP) PO SCH (09:24)
[2022-12-05] MEDS: LISINOPRIL 20 MG TABLET PO SCH (09:25)
[2022-12-05] MEDS: ANASTROZOLE 1 MG TABLET PO SCH (09:25)
[2022-12-05] MEDS: HYDROCHLOROTHIAZIDE 25 MG TABLET (FP) PO SCH (09:25)
[2022-12-05] MEDS ORDERED: DEXAMETHASONE 4 MG TABLET (FP) PO ONE (10:00)
[2022-12-05] MEDS ORDERED: PATIENT'S OWN MEDICATION (NON-FORMULARY) (Lisinopril/Hydrochlorothiazide [Lisinopril-Hctz PO SCH (10:00)
[2022-12-05] MEDS ORDERED: ROSUVASTATIN CA 5 MG TABLET PO SCH (22:00)
[2022-12-06 03:26] VITALS: TEMP 98.2
[2022-12-06] MEDS: ACETAMINOPHEN 1000 MG/100 ML BAG IVPB SCH (03:26)
[2022-12-06 06:10] VITALS: BP 150/72; PULSE 68; RESP 18
[2022-12-06] MEDS: INSULIN SLIDING SCALE (NOVOLOG) 1 VIAL SQ SCH (06:34)
[2022-12-06] MEDS: FAMOTIDINE 20 MG TABLET PO SCH (09:45)
[2022-12-06] MEDS: SENNOSIDES/DOCUSATE COMBO (SENNA PLUS) TABLET (UD) PO SCH (09:47)
[2022-12-06] MEDS: ASPIRIN 81 MG CHEWABLE TABLETS PO SCH (09:48)
[2022-12-06] MEDS: LISINOPRIL 20 MG TABLET PO SCH (09:48)
[2022-12-06] MEDS: ANASTROZOLE 1 MG TABLET PO SCH (09:48)
[2022-12-06] MEDS: MULTIVITAMINS (DAILY MVI) TABLET (FP) PO SCH (09:48)
[2022-12-06] MEDS: SERTRALINE HCL 50 MG TABLET (FP) PO SCH (09:48)
[2022-12-06] MEDS: HYDROCHLOROTHIAZIDE 25 MG TABLET (FP) PO SCH (09:49)
[2022-12-06] MEDS: ASCORBIC ACID 500 MG TABLET (FP) PO SCH (09:49)
== END 2022-12-06 12:46 | disposition home or self-care (01) | DRG 470 ==
LOC: FM/S 07:03
PROVIDERS: ADMIT Orthopaedic Surgery; ATTEND Orthopaedic Surgery
PROC: 0SRD0J9 Replacement of Left Knee Joint with Synthetic Substitute, Cemented, Open Approach (ICD-10-PCS; principal; 2022-12-04 11:14)
DX: M17.12 Unilateral primary osteoarthritis, left knee (principal)
CPT/HCPCS: 73560-TC-LT-FY; 82962; 94760; 97116-GP; 97162-GP; C1776; C1889; C9803-CS; U0003; U0005

== ENCOUNTER 2024-06-20 12:59 | Inpatient (IN) | payer OTHER, BC ==
[2024-06-20 13:09] VITALS: BMI 37.4
[2024-06-20 14:15] LABS: BASO % 0.4 % (0-2.0); EOS % 1.3 % (0-4.5); HEMATOCRIT 34.5 % (32.4-45.2); HEMOGLOBIN 11.6 GM/dL (10.7-15.3); LYMPH % 25.1 % (8-40); MCH 31.3 pg (25.7-33.7); MCHC 33.7 g/dl (32.0-36.0); MEAN CELL VOLUME 92.8 fl (80-96); MEAN PLT VOLUME 7.3 fl (7.5-11.1); MONO % 9.5 % (3.8-10.2); NEUT % 63.7 % (42.8-82.8); PLATELET COUNT 173 10^3/uL (134-434); RBC 3.72 M/mm3 (3.60-5.2); RDW 13.4 % (11.6-15.6); WHITE BLOOD COUNT 5.3 K/mm3 (4.0-10.0)
[2024-06-20] MEDS ORDERED: FAMOTIDINE 20 MG/50 ML IVPB 20 MG/50 ML MG IVPB ONE (14:18)
[2024-06-20] MEDS ORDERED: ONDANSETRON 4 MG/2 ML VIAL ONE (14:18)
[2024-06-20] MEDS ORDERED: ACETAMINOPHEN INJECTION 100 ML IVPB ONE (14:18)
[2024-06-20 14:21] LABS: INR 1.04 (0.83-1.09); PROTHROMBIN TIME (PATIENT) 11.9 SEC (9.7-13.0)
[2024-06-20 14:24] LABS: ACTIVATED PTT 28.5 SECONDS (25.2-36.5)
[2024-06-20] MEDS: ACETAMINOPHEN 1000 MG/100 ML BAG IVPB ONE (14:30)
[2024-06-20] MEDS: LACTATED RINGERS SOLUTION 1000 ML INFUS.BAG IV ONE ×2 (14:30→15:53)
[2024-06-20] MEDS: FAMOTIDINE 20 MG/50 ML IVPB 20 MG/50 ML MG IVPB ONE (14:30)
[2024-06-20] MEDS: ONDANSETRON 4 MG/2 ML VIAL IVPUSH ONE (14:30)
[2024-06-20 15:13] LABS: POTASSIUM 3.7 mmol/L (3.5-5.1)
[2024-06-20 15:15] LABS: CALCIUM 8.9 mg/dL (8.5-10.1)
[2024-06-20 15:16] LABS: ALBUMIN 3.4 g/dl (3.4-5.0); BLOOD UREA NITROGEN 19.8 mg/dL (7-18); MAGNESIUM 1.6 mg/dL (1.8-2.4)
[2024-06-20 15:19] LABS: CREATININE 2.1 mg/dL (0.55-1.3)
[2024-06-20 15:20] LABS: BILIRUBIN,TOTAL 0.5 mg/dL (0.2-1)
[2024-06-20] MEDS ORDERED: MAGNESIUM SULFATE IN WATER 2 GM/50 ML IVPB IVPB ONE (15:39)
[2024-06-20] MEDS: MAGNESIUM SULFATE IN WATER 2 GM/50 ML IVPB IVPB ONE (15:53)
[2024-06-20 16:24] LABS: EPI CELLS 15 /uL (0-25.1); HYALINE CASTS 1 /uL (0-3.1); URINE APPEARANCE CLEAR; URINE BACTERIA 288 /uL (0-1359); URINE BILIRUBIN NEGATIVE (NEGATIVE); URINE COLOR YELLOW; URINE GLUCOSE (UA) NEGATIVE (NEGATIVE); URINE KETONE NEGATIVE (NEGATIVE); URINE LEUK ESTERASE NEGATIVE (NEGATIVE); URINE NITRITE NEGATIVE (NEGATIVE); URINE PROTEIN NEGATIVE (NEGATIVE); URINE RBC 9 /uL (0-23.9); URINE UROBILINOGEN 0.2 mg/dL (0.2-1.0); URINE WBC 7 /uL (0-25.8)
[2024-06-20] MEDS ORDERED: CEFTRIAXONE 1 GM/50 ML BAG ONE (17:51)
[2024-06-20] MEDS ORDERED: TAMSULOSIN HCL 0.4 MG CAP ONE (18:01)
[2024-06-20] MEDS: TAMSULOSIN HCL 0.4 MG CAP PO ONE (18:05)
[2024-06-20] MEDS: LACTATED RINGERS SOLUTION 1,000 ML/1,000 ML INFUS.BAG IV SCH (18:05)
[2024-06-20] MEDS: INSULIN ASPART SLIDING SCALE (NOVOLOG) 1 VIAL SQ SCH (21:12)
[2024-06-20] MEDS: HEPARIN NA (PORCINE) 5,000 UNITS/ML 1ML VIAL SQ SCH (23:40)
[2024-06-21] MEDS: SODIUM CHLORIDE 1,000 ML IV SCH (06:46)
[2024-06-21] MEDS: ACETAMINOPHEN 1000 MG/100 ML BAG IVPB PRN (08:58)
[2024-06-21] MEDS: HYDROCHLOROTHIAZIDE 25 MG TABLET (FP) PO SCH (09:26)
[2024-06-21] MEDS: TAMSULOSIN HCL 0.4 MG CAP PO SCH ×2 (09:26→21:12)
[2024-06-21] MEDS: ANASTROZOLE 1 MG TABLET PO SCH (09:26)
[2024-06-21] MEDS: LISINOPRIL 20 MG TABLET PO SCH (09:27)
[2024-06-21] MEDS: SERTRALINE HCL 50 MG TABLET (FP) PO SCH (09:27)
[2024-06-21] MEDS ORDERED: PATIENT'S OWN MEDICATION (NON-FORMULARY) (Lisinopril/Hydrochlorothiazide [Lisinopril-Hctz PO SCH (10:00)
[2024-06-21 10:25] LABS: BASO % 0.6 % (0-2.0); EOS % 2.4 % (0-4.5); HEMATOCRIT 31.7 % (32.4-45.2); HEMOGLOBIN 10.9 GM/dL (10.7-15.3); LYMPH % 19.4 % (8-40); MCH 31.9 pg (25.7-33.7); MCHC 34.4 g/dl (32.0-36.0); MEAN CELL VOLUME 92.6 fl (80-96); MEAN PLT VOLUME 8.2 fl (7.5-11.1); MONO % 8.5 % (3.8-10.2); NEUT % 69.1 % (42.8-82.8); PLATELET COUNT 162 10^3/uL (134-434); RBC 3.43 M/mm3 (3.60-5.2); RDW 13.3 % (11.6-15.6); WHITE BLOOD COUNT 4.3 K/mm3 (4.0-10.0)
[2024-06-21 10:42] LABS: POTASSIUM 3.7 mmol/L (3.5-5.1)
[2024-06-21 10:47] LABS: CALCIUM 8.7 mg/dL (8.5-10.1)
[2024-06-21 10:48] LABS: ALBUMIN 3.1 g/dl (3.4-5.0); BLOOD UREA NITROGEN 16.8 mg/dL (7-18); MAGNESIUM 2.1 mg/dL (1.8-2.4)
[2024-06-21 10:51] LABS: CREATININE 2.1 mg/dL (0.55-1.3); PHOSPHOROUS 3.9 mg/dL (2.5-4.9)
[2024-06-21 10:52] LABS: BILIRUBIN,TOTAL 0.4 mg/dL (0.2-1); TOT PROT 6.4 g/dl (6.4-8.2)
[2024-06-21] MEDS: LACTATED RINGERS SOLUTION 1,000 ML/1,000 ML INFUS.BAG IV SCH (14:35)
[2024-06-21] MEDS: CEFTRIAXONE 1 GM in DEXTROSE 5%-WATER - 50 ML IVPB SCH (18:13)
[2024-06-21] MEDS: ROSUVASTATIN CA 5 MG TABLET PO SCH (21:12)
[2024-06-22] MEDS: TAMSULOSIN HCL 0.4 MG CAP PO SCH (08:47)
[2024-06-22 09:28] LABS: BASO % 0.6 % (0-2.0); EOS % 2.2 % (0-4.5); HEMATOCRIT 30.9 % (32.4-45.2); HEMOGLOBIN 10.3 GM/dL (10.7-15.3); LYMPH % 21.6 % (8-40); MCH 31.5 pg (25.7-33.7); MCHC 33.5 g/dl (32.0-36.0); MEAN CELL VOLUME 93.9 fl (80-96); MEAN PLT VOLUME 8.5 fl (7.5-11.1); MONO % 10.4 % (3.8-10.2); NEUT % 65.2 % (42.8-82.8); PLATELET COUNT 164 10^3/uL (134-434); RBC 3.29 M/mm3 (3.60-5.2); RDW 13.1 % (11.6-15.6); WHITE BLOOD COUNT 4.1 K/mm3 (4.0-10.0)
[2024-06-22 09:45] LABS: POTASSIUM 4.3 mmol/L (3.5-5.1)
[2024-06-22 09:51] LABS: CALCIUM 8.5 mg/dL (8.5-10.1)
[2024-06-22 09:52] LABS: ALBUMIN 2.9 g/dl (3.4-5.0); BLOOD UREA NITROGEN 13.8 mg/dL (7-18); MAGNESIUM 1.9 mg/dL (1.8-2.4)
[2024-06-22 09:55] LABS: BILIRUBIN,TOTAL 0.3 mg/dL (0.2-1); PHOSPHOROUS 3.4 mg/dL (2.5-4.9); TOT PROT 6.1 g/dl (6.4-8.2)
[2024-06-22] MEDS: ERGOCALCIFEROL (VIT D2) 50,000 UNIT (1.25 MG) CAPSULE PO SCH (10:50)
[2024-06-22] MEDS ORDERED: MIDAZOLAM HCL 2 MG/2 ML SINGLE DOSE VIAL ONE (13:10)
[2024-06-22] MEDS ORDERED: PROPOFOL 20 ML ONE (13:10)
[2024-06-22] MEDS ORDERED: LIDOCAINE HCL/PF 2% SDV 5ML VIAL ONE (13:10)
[2024-06-22] MEDS: ceFAZolin SODIUM 1 GM VIAL IVPB ONE (13:31)
[2024-06-22] MEDS ORDERED: DEXAMETHASONE SOD PHOSPHATE 4 MG/1 ML VIAL ONE (13:35)
[2024-06-22] MEDS ORDERED: ceFAZolin SODIUM 1 GM VIAL ONE (13:35)
[2024-06-22] MEDS ORDERED: KETOROLAC TROMETHAMINE 30 MG/1 ML VIAL ONE (13:56)
[2024-06-22] MEDS ORDERED: ONDANSETRON 4 MG/2 ML VIAL ONE (13:56)
[2024-06-22] MEDS ORDERED: PROMETHAZINE HCL 25 MG/1 ML VIAL IVPB PRN (14:23)
[2024-06-22] MEDS ORDERED: ONDANSETRON 4 MG/2 ML VIAL IVPUSH PRN (14:23)
[2024-06-22] MEDS ORDERED: ACETAMINOPHEN INJECTION 100 ML IVPB ONE (14:35)
[2024-06-22] MEDS: ACETAMINOPHEN 1000 MG/100 ML BAG IVPB ONE (14:36)
[2024-06-22] MEDS: LACTATED RINGERS SOLUTION 1,000 ML IV SCH (14:37)
[2024-06-22 16:04] VITALS: RESP 18
[2024-06-22] MEDS: ELECTROLYTE-148 SOLN 1,000 ML IV SCH (16:13)
[2024-06-23] MEDS ORDERED: ACETAMINOPHEN 325 MG TABLET (FP) PO PRN (08:59)
[2024-06-23 11:01] LABS: BASO % 0.6 % (0-2.0); EOS % 0.4 % (0-4.5); HEMATOCRIT 33.4 % (32.4-45.2); HEMOGLOBIN 11.1 GM/dL (10.7-15.3); LYMPH % 10.7 % (8-40); MCH 31.1 pg (25.7-33.7); MCHC 33.3 g/dl (32.0-36.0); MEAN CELL VOLUME 93.5 fl (80-96); MEAN PLT VOLUME 9.1 fl (7.5-11.1); MONO % 6.3 % (3.8-10.2); PLATELET COUNT 177 10^3/uL (134-434); RBC 3.57 M/mm3 (3.60-5.2); RDW 13.2 % (11.6-15.6); WHITE BLOOD COUNT 5.5 K/mm3 (4.0-10.0)
[2024-06-23 11:20] LABS: POTASSIUM 4.5 mmol/L (3.5-5.1)
[2024-06-23 11:23] LABS: BLOOD UREA NITROGEN 13.7 mg/dL (7-18); MAGNESIUM 1.9 mg/dL (1.8-2.4)
[2024-06-23 11:26] LABS: CREATININE 1.5 mg/dL (0.55-1.3)
[2024-06-23 11:28] LABS: BILIRUBIN,TOTAL 0.2 mg/dL (0.2-1); TOT PROT 6.8 g/dl (6.4-8.2)
[2024-06-23] MEDS: AMOX TR/POT CLAV 500MG/125MG TABLETS (FP) PO SCH (18:02)
[2024-06-24 07:59] LABS: POTASSIUM 3.9 mmol/L (3.5-5.1)
[2024-06-24 08:01] LABS: BLOOD UREA NITROGEN 19.3 mg/dL (7-18); CALCIUM 8.5 mg/dL (8.5-10.1)
[2024-06-24 08:05] LABS: CREATININE 1.4 mg/dL (0.55-1.3)
[2024-06-24 10:08] VITALS: BP 150/85; PULSE 84; TEMP 99.1
[2024-06-24] MEDS: LIDOCAINE 5% TOPICAL PATCH TP ONE (11:06)
[2024-06-24] MEDS ORDERED: LIDOCAINE PATCH REMOVAL MC SCH (22:00)
== END 2024-06-24 11:21 | disposition home or self-care (01) | DRG 661 ==
LOC: JER 12:59 → JERBED 17:28 → OBSVTOIN 20:28 → J5S 23:26
PROVIDERS: ADMIT Internal Medicine
PROC: 0TC68ZZ Extirpation of Matter from Right Ureter, Via Natural or Artificial Opening Endoscopic (ICD-10-PCS; principal; 2024-06-22 14:00)
PROC: 0T768DZ Dilation of Right Ureter with Intraluminal Device, Via Natural or Artificial Opening Endoscopic (ICD-10-PCS; 2024-06-22 14:00)
DX: N13.2 Hydronephrosis with renal and ureteral calculous obstruction (principal); N17.9 Acute kidney failure, unspecified; E78.5 Hyperlipidemia, unspecified; Z80.3 Family history of malignant neoplasm of breast; E66.9 Obesity, unspecified; Z68.37 Body mass index [BMI] 37.0-37.9, adult; E86.0 Dehydration; E83.42 Hypomagnesemia; K43.2 Incisional hernia without obstruction or gangrene; I12.9 Hypertensive chronic kidney disease with stage 1 through stage 4 chronic kidney disease, or unspecified chronic kidney disease; E11.22 Type 2 diabetes mellitus with diabetic chronic kidney disease; N18.9 Chronic kidney disease, unspecified
CPT/HCPCS: 36415; 74176-TC; 76000-TC-FY; 76705-TC; 80048; 80053; 80061; 81003; 81015; 82043; 82306; 82550; 82570; 82962; 83036; 83690; 83735; 84100; 84443; 84484; 85025; 85610; 85730; 86850; 86900; 86901; 87086; 93005; 93010; 94760; 99285-25; G0378; J0131; J1644

== ENCOUNTER 2024-12-29 05:01 | Day surgery (SDC) | payer OTHER, BC ==
[2024-12-28 13:05] VITALS: BMI 35.9
[2024-12-29] MEDS ORDERED: oxyCODONE HCL 5 MG TABLET PO PRN (07:19)
[2024-12-29] MEDS ORDERED: ONDANSETRON 4 MG/2 ML VIAL IVPUSH PRN (07:19)
[2024-12-29] MEDS ORDERED: LACTATED RINGERS SOLUTION 1,000 ML IV SCH (07:30)
[2024-12-29] MEDS ORDERED: MIDAZOLAM HCL 2 MG/2 ML SINGLE DOSE VIAL ONE (07:33)
[2024-12-29] MEDS ORDERED: PROPOFOL 20 ML ONE (07:33)
[2024-12-29] MEDS ORDERED: DEXAMETHASONE SOD PHOSPHATE 4 MG/1 ML VIAL ONE (07:35)
[2024-12-29] MEDS ORDERED: LIDOCAINE HCL/PF 2% SDV 5ML VIAL ONE (07:35)
[2024-12-29] MEDS ORDERED: LIDOCAINE HCL 1%, 10 MG/ML (20ML VIAL) ONE (07:37)
[2024-12-29] MEDS ORDERED: BUPIVACAINE HCL/PF 0.5% (5MG/ML) 10 ML VIAL ONE (07:37)
[2024-12-29] MEDS ORDERED: ceFAZolin SODIUM 1 GM VIAL ONE (07:59)
[2024-12-29] MEDS: ceFAZolin SODIUM 1 GM VIAL IVPB ONE (08:00)
[2024-12-29] MEDS: BUPIVACAINE HCL/PF 0.5% (5MG/ML) 10 ML VIAL IJ ONE (08:05)
[2024-12-29] MEDS: LIDOCAINE HCL 1%, 10 MG/ML (20ML VIAL) NR ONE (08:05)
[2024-12-29] MEDS ORDERED: ELECTROLYTE-148 SOLN 1,000 ML IV SCH (08:30)
[2024-12-29 09:06] VITALS: RESP 18
[2024-12-29 11:49] VITALS: BP 144/78; PULSE 83; TEMP 97.8
== END 2024-12-29 12:15 | disposition home or self-care (01) ==
LOC: JASU-SURG 05:01
PROVIDERS: ATTEND Urology
PROC: 0TSD0ZZ Reposition Urethra, Open Approach (ICD-10-PCS; principal; 2024-12-29 07:30)
DX: N39.3 Stress incontinence (female) (male) (principal)
CPT/HCPCS: 57288; C1771; 82962; 94760